=== PATIENT | male | born 1965 | race Caucasian/White ===

== ENCOUNTER 2017-11-26 15:44 | Inpatient (IN) | payer OTHER ==
[2017-11-26 16:58] VITALS: BMI 16.5
--- NOTE | 2017-11-26 19:20 | HP ---
CIWA Score - CIWA Score Nausea/Vomitin-Mild Nausea/No Vomiting Muscle Tremors: None Anxiety: 4-Mod. Anxious/Guarded Agitation: 5 Paroxysmal Sweats: No Perspiration Orientation: 3-Disoriented Date>2 days Tacttile Disturbances: 0-None Auditory Disturbances: 0-None Visual Disturbances: 0-None Headache: 0-None Present CIWA-Ar Total Score: 13 Admission ROS S - HPI Chief Complaint: C/O WITHDRAWAL SX'S. SEEKING DETOX FROM BENZO AND ALCOHOL Allergies/Adverse Reactions: Allergies Allergy/AdvReac Type Severity Reaction Status Date / Time No Known Allergies Allergy Verified 11/26/17 17:47 History of Present Illness: 52 Y.O. MALE WITH LONG HX/O ALCOHOLISM AND BENZO DEPENDENCE HERE FOR DETOX. CLIENT IS KNOWN TO THIS PROGRAM. LAST HERE 09/27/2014. REFERRED BY [facility]. DENIES HX /O SEIZURE/ AVH, SI/HI.CLIENT IS PRESENTLY ON MMTP AT [facility] LDM TODAY 70 MG CLIENT REPORTS Exam Limitations: No Limitations - Ebola screening Have you traveled outside of the country in the last 21 days: No (N) Have you had contact with anyone from an Ebola affected area: No Have you been sick,other than usual withdrawal symptoms: No Do you have a fever: No - Review of Systems Constitutional: Chills, Loss of Appetite, Night Sweats, Changes in sleep, Unintentional Wgt. Loss EENT: reports: No Symptoms Reported Respiratory: reports: No Symptoms reported Cardiac: reports: No Symptoms Reported GI: reports: Nausea, Poor Appetite : reports: No Symptoms Reported Musculoskeletal: reports: No Symptoms Reported Integumentary: reports: Sweating Neuro: reports: No Symptoms reported Endocrine: reports: No Symptoms Reported Hematology: reports: Anemia (HX/O) Psychiatric: reports: Anxious, Depressed Other Systems: Reviewed and Negative Patient History - Patient Medical History Hx Anemia: Yes (HX/O) Hx Asthma: No Hx Chronic Obstructive Pulmonary Disease (COPD): No Hx Cancer: No Hx Cardiac Disorders: No Hx Congestive Heart Failure: No Hx Hypertension: No Hx Hypercholesterolemia: No Hx Pacemaker: No HX Cerebrovascular Accident: No Hx Seizures: No Hx Dementia: No Hx Diabetes: No Hx Gastrointestinal Disorders: No Hx Liver Disease: No Hx Genitourinary Disorders: No Hx Sexually Transmitted Disorders: No Hx Renal Disease (ESRD): No Hx Thyroid Disease: No Hx Human Immunodeficiency Virus (HIV): No Hx Hepatitis C: Yes (HX/O) Hx Depression: Yes Hx Suicide Attempt: No Hx Bipolar Disorder: No Hx Schizophrenia: No Other Medical History: ANXIETY - Patient Surgical History Past Surgical History: Yes Hx Neurologic Surgery: No (head trauma at age 12) Hx Cataract Extraction: No Hx Cardiac Surgery: No Hx Lung Surgery: No Hx Breast Surgery: No Hx Breast Biopsy: No Hx Abdominal Surgery: Yes (2006 small bowel obstruction) Hx Appendectomy: No Hx Cholecystectomy: No Hx Genitourinary Surgery: No Hx Section: No Hx Orthopedic Surgery: No Other Surgical History: metal plate in rt side of head due to childhood injury; Anesthesia Reaction: No - PPD History Previous Implant?: Yes Documented Results: Negative w/o proof Implanted On Prior [facility] Admission?: Yes Date: 09/27/14 PPD to be Administered?: Yes - Smoking Cessation Smoking history: Current every day smoker Have you smoked in the past 12 months: Yes Aproximately how many cigarettes per day: 4 Cigars Per Day: 0 Hx Chewing Tobacco Use: No Initiated information on smoking cessation: Yes 'Breaking Loose' booklet given: 11/26/17 - Substance & Tx. History Hx Alcohol Use: Yes Hx Substance Use: Yes Substance Use Type: Alcohol, Tranquilizers (XANAX, KLONOPINS) Hx Substance Use Treatment: Yes ([facility]) - Substances Abused Alcohol Route: Oral Frequency: 3-6 times per week Amount used: 2-3 16 OZ CANS Age of first use: 16 Date of Last Use: 11/24/17 Alprazolam (Xanax) Route: Oral Frequency: Daily Amount used: 14 MG Age of first use: 49 Date of Last Use: 11/26/17 Family Disease History - Family Disease History Family Disease History: Diabetes: Mother, Heart Disease: Mother, Other: Brother (dsa) Admission Physical Exam BHS - Vital Signs Vital Signs: Vital Signs - 24 hr 11/26/17 16:56 Temperature 97.8 F Pulse Rate 62 Respiratory 18 Rate Blood Pressure 108/70 - Physical General Appearance: Yes: Mild Distress, Thin, Tremorous (FELT), Irritable, Sweating (MOIST SKIN) HEENTM: Yes: EOMI, Normocephalic, Normal Voice, DOLORES, Pharynx Normal, Rhinorrhea , Other (POOR DENTITION) Respiratory: Yes: Chest Non-Tender, Lungs Clear, Normal Breath Sounds, No Respiratory Distress, No Accessory Muscle Use Neck: Yes: No masses,lesions,Nodules, Supple, Trachea in good position Breast: Yes: Breast Exam Deferred Cardiology: Yes: Regular Rhythm, Regular Rate, S1, S2 Abdominal: Yes: Normal Bowel Sounds, Non Tender, Flat, Soft, Surgical Scar Genitourinary: Yes: Within Normal Limits Back: Yes: Normal Inspection Musculoskeletal: Yes: full range of Motion, Gait Steady Extremities: Yes: Normal Range of Motion, Non-Tender, Tremors (FELT) Neurological: Yes: Fully Oriented, Alert, Disoriented (TO DATE), Depressed Affect Integumentary: Yes: Cold (COOL), Moist Lymphatic: Yes: Within Normal Limits - Diagnostic (1) Alcohol dependence with uncomplicated withdrawal Current Visit: Yes Status: Acute (2) Methadone maintenance therapy patient Current Visit: Yes Status: Chronic (3) Anxiolytic withdrawal without complication Current Visit: Yes Status: Acute (4) Drug-induced mood disorder Current Visit: Yes Status: Suspected (5) Weight decreased Current Visit: Yes Status: Chronic (6) Nicotine dependence Current Visit: Yes Status: Chronic Qualifiers: Nicotine product type: cigarettes Substance use status: uncomplicated Qualified Code(s): F17.210 - Nicotine dependence, cigarettes, uncomplicated Cleared for Admission S - Detox or Rehab [facility] Level of Care: Medically Managed Detox Regimen/Protocol: Valium Claeared for Rehab Admission: No S Breath Alcohol Content Breath Alcohol Content: 0 Urine Drug Screen - Results Drug Screen Negative: No Urine Drug Screen Results: BZO-Benzodiazepines, MTD-Methadone, TCA-Tricyclic Antidepress
[2017-11-26] MEDS ORDERED: hydrOXYzine PAMOATE 50 MG CAPSULE (FP) PO PRN (19:30)
[2017-11-26] MEDS ORDERED: IBUPROFEN 400 MG TABLET (FP) PO PRN (19:30)
[2017-11-26] MEDS ORDERED: MAG HYDROX/AL HYDROX/SIMETH 30 ML UNIT-DOSE CUP PO PRN (19:30)
[2017-11-26] MEDS ORDERED: ACETAMINOPHEN 325 MG TABLET (FP) PO PRN (19:30)
[2017-11-26] MEDS ORDERED: MAGNESIUM HYDROX 2400MG/30ML ORAL SUSPENSION 30 ML CUP PO PRN (19:30)
[2017-11-26] MEDS ORDERED: diazePAM 5 MG TABLET PO PRN (19:30)
[2017-11-26] MEDS ORDERED: guaiFENesin/D-METHORPHAN HB 10 ML UNIT-DOSE CUPS PO PRN (19:30)
[2017-11-26] MEDS ORDERED: NICOTINE POLACRILEX 2 MG GUM BUC PRN (19:30)
[2017-11-26] MEDS ORDERED: MENTHOL/PHENOL 1 EACH UD MM PRN (19:30)
[2017-11-26] MEDS ORDERED: P-EPHED 60MG/TRIPROLIDI 2.5MG TABLET PO PRN (19:30)
[2017-11-26] MEDS ORDERED: MAGNESIUM CITRATE 300 ML BOTTLE PO PRN (19:30)
[2017-11-26] MEDS ORDERED: LOPERAMIDE HCL 2 MG CAPSULE PO PRN (19:30)
[2017-11-26] MEDS ORDERED: diazePAM 5 MG TABLET PO ONE (19:45)
[2017-11-26] MEDS ORDERED: THIAMINE HCL 100 MG TABLET (FP) PO SCH (22:00)
[2017-11-26] MEDS ORDERED: MELATONIN 5 MG TABLETS PO PRN (22:00)
[2017-11-26] MEDS: diazePAM 5 MG TABLET PO SCH (22:38)
[2017-11-27] MEDS: diazePAM 5 MG TABLET PO SCH (05:59)
[2017-11-27 06:28] VITALS: BP 110/71; PULSE 45; TEMP 97
[2017-11-27] MEDS ORDERED: METHADONE HCL 10 MG TABLET PO SCH (07:45)
[2017-11-27] MEDS ORDERED: METHADONE HCL 10 MG TABLET ONE (07:58)
[2017-11-27] MEDS ORDERED: METHADONE HCL 40 MG DISPERSABLE TABLET ONE (07:59)
[2017-11-27] MEDS ORDERED: METHADONE 40 MG, METHADONE 30 MG PO SCH (08:00)
[2017-11-27] MEDS ORDERED: PRENATAL VITAMINS W/ FOLIC ACID TABLET (FP) PO SCH (10:00)
[2017-11-27] MEDS ORDERED: NICOTINE 14 MG/24 HOURS TOPICAL PATCH TD SCH (10:00)
[2017-11-27 10:18] LABS: HEMOGLOBIN 12.4 GM/dL (11.7-16.9); MCH 30.1 pg (25.7-33.7); MCHC 33.6 g/dl (32.0-35.9); MEAN CELL VOLUME 89.7 fl (80-96); MEAN PLT VOLUME 8.3 fl (7.5-11.1); PLATELET COUNT 184 K/MM3 (134-434); RBC 4.13 M/mm3 (4.00-5.60); RDW 13.3 % (11.9-15.9); WHITE BLOOD COUNT 5.2 K/mm3 (4.0-10.0)
[2017-11-27 10:37] LABS: ALBUMIN 3.9 g/dl (3.4-5.0); ANION GAP 6 (8-16); BLOOD UREA NITROGEN 12 mg/dL (7-18); CHLORIDE 105 mmol/L (98-107); CO2 31 mmol/L (21-32); GLUCOSE,RANDOM 81 mg/dL (74-106); POTASSIUM 4.3 mmol/L (3.5-5.1); SODIUM 142 mmol/L (136-145)
[2017-11-27 10:40] LABS: ALK PHOS 56 U/L (45-117); BILIRUBIN,TOTAL 0.3 mg/dL (0.2-1.0); CALCIUM 9.2 mg/dL (8.5-10.1); CREATININE 0.8 mg/dL (0.7-1.3); SGOT/AST 19 U/L (15-37); SGPT/ALT 17 U/L (12-78); TOT PROT 7.2 g/dl (6.4-8.2)
[2017-11-27 10:41] LABS: URINE APPEARANCE TURBID; URINE COLOR RED; URINE GLUCOSE (UA) NEGATIVE (NEGATIVE); URINE KETONE TRACE (NEGATIVE); URINE LEUK ESTERASE NEGATIVE (NEGATIVE); URINE NITRITE NEGATIVE (NEGATIVE)
[2017-11-27 10:42] LABS: URINE PROTEIN 1+ (NEGATIVE)
[2017-11-27 10:52] LABS: EPI CELLS RARE /HPF (FEW); URINE BACTERIA MODERATE /hpf (NONE SEEN); URINE HYALINE CAST 10 /lpf; URINE MUCUS MANY
--- NOTE | 2017-11-27 13:19 | CONSULT ---
[facility] Psychiatric Consult - Data Date of interview: 11/27/17 Admission source: [facility] Identifying data: Patient not found for the psychiatric interview.Mr Abundio had left earlier.See staff's notes.
--- NOTE | 2017-11-27 19:42 | PN ---
S CIWA - CIWA Score Nausea/Vomitin-No Nausea/No Vomiting Muscle Tremors: 3 Anxiety: 5 Agitation: 4-Moderately Restless Paroxysmal Sweats: 2 Orientation: 0-Oriented Tacttile Disturbances: 1-Very Mild Itch/Numbness Auditory Disturbances: 0-None Visual Disturbances: 0-None Headache: 0-None Present CIWA-Ar Total Score: 15 BHS Progress Note (SOAP) Subjective: Tremors, Anxious, Interrupted Sleep. Objective: PATIENT A & O X 3, OBSERVED AMBULATING ON UNIT. NO ACUTE DISTRESS. 11/27/17 19:41 Vital Signs Temperature 97.0 F L 11/27/17 06:27 Pulse Rate 45 L 11/27/17 06:27 Respiratory Rate 18 11/27/17 06:27 Blood Pressure 110/71 11/27/17 06:27 O2 Sat by Pulse Oximetry (%) Laboratory Tests 11/27/17 11/27/17 11/27/17 08:00 08:00 08:00 WBC 5.2 RBC 4.13 Hgb 12.4 Hct 37.0 MCV 89.7 MCH 30.1 MCHC 33.6 RDW 13.3 Plt Count 184 MPV 8.3 Sodium 142 Potassium 4.3 Chloride 105 Carbon Dioxide 31 Anion Gap 6 L BUN 12 Creatinine 0.8 Creat Clearance w eGFR > 60 Random Glucose 81 Calcium 9.2 Total Bilirubin 0.3 AST 19 D ALT 17 D Alkaline Phosphatase 56 Total Protein 7.2 Albumin 3.9 Urine Color Urine Appearance Urine pH Ur Specific [place] Urine Protein Urine Glucose (UA) Urine Ketones Urine Blood Urine Nitrite Urine Bilirubin Urine Urobilinogen Ur Leukocyte Esterase Urine WBC (Auto) Urine RBC (Auto) Ur Epithelial Cells Urine Bacteria Hyaline Casts Urine Mucus RPR Titer Nonreactive 11/27/17 08:20 WBC RBC Hgb Hct MCV MCH MCHC RDW Plt Count MPV Sodium Potassium Chloride Carbon Dioxide Anion Gap BUN Creatinine Creat Clearance w eGFR Random Glucose Calcium Total Bilirubin AST ALT Alkaline Phosphatase Total Protein Albumin Urine Color Red Urine Appearance Turbid Urine pH 5.0 Ur Specific [place] 1.033 Urine Protein 1+ H Urine Glucose (UA) Negative Urine Ketones Trace H Urine Blood Negative Urine Nitrite Negative Urine Bilirubin 2.0 Urine Urobilinogen 2.0 Ur Leukocyte Esterase Negative Urine WBC (Auto) None Urine RBC (Auto) None Ur Epithelial Cells Rare Urine Bacteria Moderate Hyaline Casts 10 Urine Mucus Many RPR Titer LABS NOTED. Assessment: 11/27/17 19:41 WITHDRAWAL SYMPTOMS. Plan: CONTINUE DETOX.
--- NOTE | 2017-11-27 19:44 | DS ---
[facility] Detox Discharge Summary Admission Date: 11/26/17 Discharge Date: 11/27/17 - History Present History: Alcohol Dependence, Opioid Dependence, Sedative Dependence, MMTP Additional Comments: PATIENT DOES NOT WISH TO REMAIN TO COMPLETE DETOX REGIMEN. RISKS OF LEAVING DETOX UNIT AGAINST MEDICAL ADVICE AND PRIOR TO COMPLETION OF DETOX REGIMEN EXPLAINED TO PATIENT. PATIENT ADVISED TO GO IMMEDIATELY TO NEAREST ER SHOULD ANY INTOLERABLE DETOX SYMPTOMS DEVELOP AT ANY TIME. PATIENT LEFT DETOX UNIT IN STABLE MEDICAL CONDITION. Pertinent Past History: Nicotine Dependence, Weight Loss, History of Anemia, History of Depression, Anxiety, Hep C. - Physical Exam Results Vital Signs: Vital Signs Temperature 97.0 F L 11/27/17 06:27 Pulse Rate 45 L 11/27/17 06:27 Respiratory Rate 18 11/27/17 06:27 Blood Pressure 110/71 11/27/17 06:27 O2 Sat by Pulse Oximetry (%) Pertinent Admission Physical Exam Findings: WITHDRAWAL SYMPTOMS. Laboratory Tests 11/27/17 11/27/17 11/27/17 08:00 08:00 08:00 WBC 5.2 RBC 4.13 Hgb 12.4 Hct 37.0 MCV 89.7 MCH 30.1 MCHC 33.6 RDW 13.3 Plt Count 184 MPV 8.3 Sodium 142 Potassium 4.3 Chloride 105 Carbon Dioxide 31 Anion Gap 6 L BUN 12 Creatinine 0.8 Creat Clearance w eGFR > 60 Random Glucose 81 Calcium 9.2 Total Bilirubin 0.3 AST 19 D ALT 17 D Alkaline Phosphatase 56 Total Protein 7.2 Albumin 3.9 Urine Color Urine Appearance Urine pH Ur Specific [place] Urine Protein Urine Glucose (UA) Urine Ketones Urine Blood Urine Nitrite Urine Bilirubin Urine Urobilinogen Ur Leukocyte Esterase Urine WBC (Auto) Urine RBC (Auto) Ur Epithelial Cells Urine Bacteria Hyaline Casts Urine Mucus RPR Titer Nonreactive 11/27/17 08:20 WBC RBC Hgb Hct MCV MCH MCHC RDW Plt Count MPV Sodium Potassium Chloride Carbon Dioxide Anion Gap BUN Creatinine Creat Clearance w eGFR Random Glucose Calcium Total Bilirubin AST ALT Alkaline Phosphatase Total Protein Albumin Urine Color Red Urine Appearance Turbid Urine pH 5.0 Ur Specific [place] 1.033 Urine Protein 1+ H Urine Glucose (UA) Negative Urine Ketones Trace H Urine Blood Negative Urine Nitrite Negative Urine Bilirubin 2.0 Urine Urobilinogen 2.0 Ur Leukocyte Esterase Negative Urine WBC (Auto) None Urine RBC (Auto) None Ur Epithelial Cells Rare Urine Bacteria Moderate Hyaline Casts 10 Urine Mucus Many RPR Titer LABS NOTED. - Treatment Hospital Course: Detoxed Safely - Medication Discharge Medications: Ambulatory Orders NK [No Known Home Medication] 09/25/14 - Diagnosis (1) Alcohol dependence with uncomplicated withdrawal Status: Acute (2) Anxiolytic withdrawal without complication Status: Acute (3) Methadone maintenance therapy patient Status: Chronic (4) Nicotine dependence Status: Chronic Qualifiers: Nicotine product type: cigarettes Substance use status: uncomplicated Qualified Code(s): F17.210 - Nicotine dependence, cigarettes, uncomplicated (5) Weight decreased Status: Chronic (6) Drug-induced mood disorder Status: Suspected - AMA Did Patient Leave Against Medical Advice: Yes (PATIENT DID NOT WISH TO REMAIN TO COMPLETE DETOX REGIMEN.)
[2017-11-28] MEDS ORDERED: diazePAM 5 MG TABLET PO SCH (10:00)
--- NOTE | 2017-11-29 11:09 | EKG ---
Test Reason : Blood Pressure : / mmHG Vent. Rate : 048 BPM Atrial Rate : 048 BPM P-R Int : 176 ms QRS Dur : 086 ms QT Int : 452 ms P-R-T Axes : 081 072 067 degrees QTc Int : 403 ms SINUS BRADYCARDIA OTHERWISE NORMAL ECG NO PREVIOUS ECGS AVAILABLE Confirmed by EASTON CAMPOS MD ([id number]) on 11/29/2017 11:09:22 AM Referred By: Confirmed By:EASTON CAMPOS MD
[2017-11-30] MEDS ORDERED: diazePAM 5 MG TABLET PO SCH (10:00)
== END 2017-11-27 11:05 | disposition left against medical advice (07) | DRG 770 ==
LOC: YASAS 15:44 → Y3N 18:15
PROVIDERS: ADMIT Surgery; ATTEND Surgery
PROC: HZ2ZZZZ Detoxification Services for Substance Abuse Treatment (ICD-10-PCS; principal; 2017-11-26)
DX: F10.230 Alcohol dependence with withdrawal, uncomplicated (principal); F13.20 Sedative, hypnotic or anxiolytic dependence, uncomplicated; F11.20 Opioid dependence, uncomplicated; F17.210 Nicotine dependence, cigarettes, uncomplicated; F19.24 Other psychoactive substance dependence with psychoactive substance-induced mood disorder; F41.8 Other specified anxiety disorders; R63.4 Abnormal weight loss; Z68.1 Body mass index [BMI] 19.9 or less, adult; Z86.19 Personal history of other infectious and parasitic diseases; Z86.2 Personal history of diseases of the blood and blood-forming organs and certain disorders involving the immune mechanism
CPT/HCPCS: 36415; 80053; 81003; 81015; 85027; 86593; 93005; 93010

== ENCOUNTER 2018-07-05 10:30 | Inpatient (IN) | payer OTHER ==
[2018-07-05 12:33] VITALS: BMI 17.1
--- NOTE | 2018-07-05 13:26 | HP ---
CIWA Score Nausea/Vomitin Muscle Tremors: 2 Anxiety: 2 Agitation: 2 Paroxysmal Sweats: 1-Minimal Palms Moist Orientation: 0-Oriented Tacttile Disturbances: 1-Very Mild Itch/Numbness Auditory Disturbances: 1-Very Mild Visual Disturbances: 0-None Headache: 2-Mild CIWA-Ar Total Score: 13 - Admission Criteria [facility] Guidelines: Admission for Medically Managed Detox: Requires at least one of the followin. CIWA greater than 12 2. Seizures within the past 24 hours 3. Delirium tremens within the past 24 hours 4. Hallucinations within the past 24 hours 5. Acute intervention needed for co occurring medical disorder 6. Acute intervention needed for co occurring psychiatric disorder 7. Severe withdrawal that cannot be handled at a lower level of care (continued vomiting, continued diarrhea, abnormal vital signs) requiring intravenous medication and/or fluids 8. Patient presents the following: CIWA greater than 12 Admission Criteria Met: Admission criteria met Admission ROS S - [facility] Chief Complaint: i need help to stop using xanax,klonopin,alcohol,heroin abused Allergies/Adverse Reactions: Allergies Allergy/AdvReac Type Severity Reaction Status Date / Time No Known Allergies Allergy Verified 07/05/18 12:48 History of Present Illness: this 52 years old male with xanax,klonopin dependence,alcohol ,heroin abused, mmtp 80 mgs/day, last medicated today multiple admissions in detox but keep relapsing last detox 11/26/17 to 11/27/17 weight loss hepatitis c follow up by medical provider no treatment needed longest period of sobriety for 2 years [facility] go go back to methadone program - Ebola screening Have you traveled outside of the country in the last 21 days: No Have you had contact with anyone from an Ebola affected area: No Have you been sick,other than usual withdrawal symptoms: No Do you have a fever: No - Review of Systems Constitutional: Loss of Appetite, Malaise, Night Sweats, Changes in sleep, Weakness, Unintentional Wgt. Loss EENT: reports: Nose Congestion Respiratory: reports: No Symptoms reported Cardiac: reports: No Symptoms Reported GI: reports: Nausea, Poor Appetite, Vomiting, Abdominal cramping : reports: No Symptoms Reported Musculoskeletal: reports: Back Pain, Muscle Pain, Muscle Weakness Integumentary: reports: Dryness Neuro: reports: Headache, Tremors Endocrine: reports: No Symptoms Reported Hematology: reports: No Symptoms Reported Psychiatric: reports: No Sypmtoms Reported, Judgement Intact, Mood/Affect Appropiate, Orientated x3, other Patient History - Patient Medical History Hx Anemia: Yes (HX/O,no medication) Hx Asthma: No Hx Chronic Obstructive Pulmonary Disease (COPD): No Hx Cancer: No Hx Cardiac Disorders: No Hx Congestive Heart Failure: No Hx Hypertension: No Hx Hypercholesterolemia: No Hx Pacemaker: No HX Cerebrovascular Accident: No Hx Seizures: No Hx Dementia: No Hx Diabetes: No Hx Gastrointestinal Disorders: No Hx Liver Disease: No Hx Genitourinary Disorders: No Hx Sexually Transmitted Disorders: No Hx Renal Disease (ESRD): No Hx Thyroid Disease: No Hx Human Immunodeficiency Virus (HIV): No Hx Hepatitis C: Yes (HX/O no treatment needed follow up by medical provider) Hx Depression: Yes Hx Suicide Attempt: No Hx Bipolar Disorder: No Hx Schizophrenia: Yes (schizoaffective disorder) Other Medical History: no suicidal,no homicidal, - Patient Surgical History Past Surgical History: Yes Hx Neurologic Surgery: No (head trauma at age 12) Hx Cataract Extraction: No Hx Cardiac Surgery: No Hx Lung Surgery: No Hx Breast Surgery: No Hx Breast Biopsy: No Hx Abdominal Surgery: Yes (2006 small bowel obstruction) Hx Appendectomy: No Hx Cholecystectomy: No Hx Genitourinary Surgery: No Hx Section: No Hx Orthopedic Surgery: No Other Surgical History: metal plate in rt side of head due to childhood injury; Anesthesia Reaction: No - PPD History Previous Implant?: Yes Documented Results: Negative w/proof Implanted On Prior R Admission?: Yes Results: no reading PPD to be Administered?: Yes - Smoking Cessation Smoking history: Current every day smoker Have you smoked in the past 12 months: Yes Aproximately how many cigarettes per day: 3 Cigars Per Day: 0 Hx Chewing Tobacco Use: No Initiated information on smoking cessation: Yes 'Breaking Loose' booklet given: 07/05/18 - Substance & Tx. History Hx Alcohol Use: Yes Hx Substance Use: Yes Substance Use Type: Alcohol, Heroin, Tranquilizers - Substances Abused Heroin Route: Inhalation Frequency: 1-3 times last 30 days Amount used: 1 bag Age of first use: 23 Date of Last Use: 07/05/18 Xanax/Klonopin Route: Oral Frequency: Daily Amount used: 8-10 mg. Age of first use: 50 Date of Last Use: 07/05/18 Alcohol- Route: Oral Frequency: Daily Amount used: 2-3 (12 oz.) Age of first use: 13 Date of Last Use: 07/05/18 Family Disease History - Family Disease History Family Disease History: Diabetes: Mother, Heart Disease: Mother, Other: Brother (dsa) Admission Physical Exam [facility] - Vital Signs Vital Signs: Vital Signs - 24 hr 07/05/18 12:30 Temperature 96.4 F L Pulse Rate 73 Respiratory 18 Rate Blood Pressure 111/61 - Physical General Appearance: Yes: Moderate Distress, Tremorous, Irritable, Sweating, Anxious HEENTM: Yes: Normal ENT Inspection, Normocephalic, DOLORES, Pharynx Normal, Other ( scar in right parietal area) Respiratory: Yes: Lungs Clear, Normal Breath Sounds, No Respiratory Distress Neck: Yes: Within Normal Limits, Supple, Trachea in good position Breast: Yes: Within Normal Limits Cardiology: Yes: Within Normal Limits, Regular Rhythm, Regular Rate, S1, S2 Abdominal: Yes: Surgical Scar Genitourinary: Yes: Within Normal Limits Back: Yes: Muscle Spasm Musculoskeletal: Yes: full range of Motion, Back pain, Muscle Pain Extremities: Yes: Normal Range of Motion, Tremors 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, Fully Oriented, Alert, Motor Strength 5/5 Integumentary: Yes: Dry Lymphatic: Yes: Within Normal Limits - Diagnostic (1) Alcohol dependence with uncomplicated withdrawal Current Visit: No Status: Acute (2) Anxiolytic withdrawal without complication Current Visit: No Status: Acute (3) Methadone maintenance therapy patient Current Visit: No Status: Chronic (4) Nicotine dependence Current Visit: No Status: Chronic Qualifiers: Nicotine product type: cigarettes Substance use status: uncomplicated Qualified Code(s): F17.210 - Nicotine dependence, cigarettes, uncomplicated (5) Weight decreased Current Visit: No Status: Chronic (6) mmtp Current Visit: No Status: Chronic (7) Schizoaffective disorder Current Visit: Yes Status: Acute (8) Dehydration Current Visit: Yes Status: Acute Cleared for Admission [facility] - Detox or Rehab [facility] Level of Care: Medically Managed Detox Regimen/Protocol: Librium S Breath Alcohol Content Breath Alcohol Content: 0 Urine Drug Screen - Results Drug Screen Negative: No Urine Drug Screen Results: OPI-Opiates, BZO-Benzodiazepines, MTD-Methadone Inpatient Rehab Admission - Rehab Decision to Admit Inpatient rehab admission?: No
[2018-07-05] MEDS ORDERED: LOPERAMIDE HCL 2 MG CAPSULE PO PRN (13:50)
[2018-07-05] MEDS ORDERED: guaiFENesin/D-METHORPHAN HB 10 ML UNIT-DOSE CUPS PO PRN (13:50)
[2018-07-05] MEDS ORDERED: hydrOXYzine PAMOATE 50 MG CAPSULE (FP) PO PRN (13:50)
[2018-07-05] MEDS ORDERED: MAGNESIUM HYDROX 2400MG/30ML ORAL SUSPENSION 30 ML CUP PO PRN (13:50)
[2018-07-05] MEDS ORDERED: MAG HYDROX/AL HYDROX/SIMETH 30 ML UNIT-DOSE CUP PO PRN (13:50)
[2018-07-05] MEDS ORDERED: ACETAMINOPHEN 325 MG TABLET (FP) PO PRN (13:50)
[2018-07-05] MEDS ORDERED: MAGNESIUM CITRATE 300 ML BOTTLE PO PRN (13:50)
[2018-07-05] MEDS ORDERED: IBUPROFEN 400 MG TABLET (FP) PO PRN (13:50)
[2018-07-05] MEDS ORDERED: P-EPHED 60MG/TRIPROLIDI 2.5MG TABLET PO PRN (13:50)
[2018-07-05] MEDS ORDERED: MENTHOL/PHENOL 1 EACH UD MM PRN (13:50)
[2018-07-05] MEDS ORDERED: diazePAM 5 MG TABLET PO ONE (13:57)
[2018-07-05] MEDS: THIAMINE HCL 100 MG TABLET (FP) PO SCH (22:51)
[2018-07-05] MEDS: diazePAM 5 MG TABLET PO SCH (22:51)
[2018-07-06] MEDS: diazePAM 5 MG TABLET PO SCH ×3 (05:30→22:00)
[2018-07-06] MEDS: METHADONE HCL 40 MG DISPERSABLE TABLET PO SCH (05:30)
[2018-07-06 10:18] LABS: HEMATOCRIT 36.3 % (35.4-49); HEMOGLOBIN 12.2 GM/dL (11.7-16.9); MCH 29.8 pg (25.7-33.7); MCHC 33.5 g/dl (32.0-35.9); MEAN PLT VOLUME 9.2 fl (7.5-11.1); PLATELET COUNT 192 K/MM3 (134-434); RBC 4.08 M/mm3 (4.00-5.60); RDW 13.6 % (11.9-15.9); WHITE BLOOD COUNT 5.4 K/mm3 (4.0-10.0)
[2018-07-06] MEDS: PRENATAL VITAMINS W/ FOLIC ACID TABLET (FP) PO SCH (10:47)
[2018-07-06 11:25] LABS: ALK PHOS 60 U/L (45-117); ANION GAP 6 MMOL/L (8-16); BILIRUBIN,TOTAL 0.3 mg/dL (0.2-1); BLOOD UREA NITROGEN 18 mg/dL (7-18); CALCIUM 8.9 mg/dL (8.5-10.1); CHLORIDE 103 mmol/L (98-107); CO2 29 mmol/L (21-32); CREATININE 0.9 mg/dL (0.55-1.3); GLUCOSE,RANDOM 112 mg/dL (74-106); POTASSIUM 4.3 mmol/L (3.5-5.1); SGOT/AST 18 U/L (15-37); SGPT/ALT 18 U/L (13-61); SODIUM 139 mmol/L (136-145); TOT PROT 7.2 g/dl (6.4-8.2)
--- NOTE | 2018-07-06 11:41 | PN ---
[facility] CIWA - CIWA Score Nausea/Vomitin-No Nausea/No Vomiting Muscle Tremors: 2 Anxiety: 1-Mildly Anxious Agitation: 2 Paroxysmal Sweats: 1-Minimal Palms Moist Orientation: 2-Disoriented Date<2 days Tacttile Disturbances: 0-None Auditory Disturbances: 0-None Visual Disturbances: 0-None Headache: 1-Very Mild CIWA-Ar Total Score: 9 S Progress Note (SOAP) Subjective: anxiety tremor sweating restlessness overly worry Objective: 07/06/18 11:40 Vital Signs Temperature 97.7 F 07/06/18 10:47 Pulse Rate 72 07/06/18 10:47 Respiratory Rate 18 07/06/18 10:47 Blood Pressure 103/61 07/06/18 10:47 O2 Sat by Pulse Oximetry (%) Laboratory Last Values WBC 5.4 K/mm3 (4.0-10.0) 07/06/18 06:00 RBC 4.08 M/mm3 (4.00-5.60) 07/06/18 06:00 Hgb 12.2 GM/dL (11.7-16.9) 07/06/18 06:00 Hct 36.3 % (35.4-49) 07/06/18 06:00 MCV 89.0 fl (80-96) 07/06/18 06:00 MCH 29.8 pg (25.7-33.7) 07/06/18 06:00 MCHC 33.5 g/dl (32.0-35.9) 07/06/18 06:00 RDW 13.6 % (11.9-15.9) 07/06/18 06:00 Plt Count 192 K/MM3 (134-434) 07/06/18 06:00 MPV 9.2 fl (7.5-11.1) D 07/06/18 06:00 Sodium 139 mmol/L (136-145) 07/06/18 06:00 Potassium 4.3 mmol/L (3.5-5.1) 07/06/18 06:00 Chloride 103 mmol/L (98-107) 07/06/18 06:00 Carbon Dioxide 29 mmol/L (21-32) 07/06/18 06:00 Anion Gap 6 MMOL/L (8-16) L 07/06/18 06:00 BUN 18 mg/dL (7-18) 07/06/18 06:00 Creatinine 0.9 mg/dL (0.55-1.3) 07/06/18 06:00 Creat Clearance w eGFR > 60 (>60) 07/06/18 06:00 Random Glucose 112 mg/dL (74-106) H 07/06/18 06:00 Calcium 8.9 mg/dL (8.5-10.1) 07/06/18 06:00 Total Bilirubin 0.3 mg/dL (0.2-1) 07/06/18 06:00 AST 18 U/L (15-37) 07/06/18 06:00 ALT 18 U/L (13-61) 07/06/18 06:00 Alkaline Phosphatase 60 U/L (45-117) 07/06/18 06:00 Total Protein 7.2 g/dl (6.4-8.2) 07/06/18 06:00 Albumin 4.0 g/dl (3.4-5.0) 07/06/18 06:00 lab noted Assessment: 07/06/18 11:40 withdrawal sx Plan: continue detox
--- NOTE | 2018-07-06 13:27 | CONSULT ---
[facility] Psychiatric Consult - Data Date of interview: 07/06/18 Admission source: [facility] Identifying data: [employer] medical students approached this patient at bedside for a psychiatric evaluation. Mr Del Castillo declines to be interviewed.
[2018-07-06] MEDS: MELATONIN 5 MG TABLETS PO PRN (22:00)
[2018-07-06] MEDS: THIAMINE HCL 100 MG TABLET (FP) PO SCH (22:00)
[2018-07-07] MEDS: diazePAM 5 MG TABLET PO PRN ×2 (06:20→18:26)
[2018-07-07] MEDS: METHADONE HCL 40 MG DISPERSABLE TABLET PO SCH (06:20)
[2018-07-07] MEDS: PRENATAL VITAMINS W/ FOLIC ACID TABLET (FP) PO SCH (10:29)
[2018-07-07] MEDS: diazePAM 5 MG TABLET PO SCH ×2 (10:29→22:44)
--- NOTE | 2018-07-07 16:31 | PN ---
S CIWA - CIWA Score Nausea/Vomitin-No Nausea/No Vomiting Muscle Tremors: 1-None Visible, but [place] Anxiety: 1-Mildly Anxious Agitation: 1-Slight > Activity Paroxysmal Sweats: 1-Minimal Palms Moist Orientation: 0-Oriented Tacttile Disturbances: 0-None Auditory Disturbances: 0-None Visual Disturbances: 0-None Headache: 1-Very Mild CIWA-Ar Total Score: 5 BHS Progress Note (SOAP) Subjective: feeling better less tremor less anxiety sleep better at night Objective: 07/07/18 16:30 Vital Signs Temperature 97.9 F 07/07/18 13:24 Pulse Rate 78 07/07/18 13:24 Respiratory Rate 18 07/07/18 13:24 Blood Pressure 106/70 07/07/18 13:24 O2 Sat by Pulse Oximetry (%) Laboratory Last Values WBC 5.4 K/mm3 (4.0-10.0) 07/06/18 06:00 RBC 4.08 M/mm3 (4.00-5.60) 07/06/18 06:00 Hgb 12.2 GM/dL (11.7-16.9) 07/06/18 06:00 Hct 36.3 % (35.4-49) 07/06/18 06:00 MCV 89.0 fl (80-96) 07/06/18 06:00 MCH 29.8 pg (25.7-33.7) 07/06/18 06:00 MCHC 33.5 g/dl (32.0-35.9) 07/06/18 06:00 RDW 13.6 % (11.9-15.9) 07/06/18 06:00 Plt Count 192 K/MM3 (134-434) 07/06/18 06:00 MPV 9.2 fl (7.5-11.1) D 07/06/18 06:00 Sodium 139 mmol/L (136-145) 07/06/18 06:00 Potassium 4.3 mmol/L (3.5-5.1) 07/06/18 06:00 Chloride 103 mmol/L (98-107) 07/06/18 06:00 Carbon Dioxide 29 mmol/L (21-32) 07/06/18 06:00 Anion Gap 6 MMOL/L (8-16) L 07/06/18 06:00 BUN 18 mg/dL (7-18) 07/06/18 06:00 Creatinine 0.9 mg/dL (0.55-1.3) 07/06/18 06:00 Creat Clearance w eGFR > 60 (>60) 07/06/18 06:00 Random Glucose 112 mg/dL (74-106) H 07/06/18 06:00 Calcium 8.9 mg/dL (8.5-10.1) 07/06/18 06:00 Total Bilirubin 0.3 mg/dL (0.2-1) 07/06/18 06:00 AST 18 U/L (15-37) 07/06/18 06:00 ALT 18 U/L (13-61) 07/06/18 06:00 Alkaline Phosphatase 60 U/L (45-117) 07/06/18 06:00 Total Protein 7.2 g/dl (6.4-8.2) 07/06/18 06:00 Albumin 4.0 g/dl (3.4-5.0) 07/06/18 06:00 RPR Titer Nonreactive (NONREACTIVE) 07/06/18 06:00 HIV 1&2 Antibody Screen Negative 07/05/18 13:30 HIV P24 Antigen Negative 07/05/18 13:30 lab noted Assessment: 07/07/18 16:31 mild withdrawal sx Plan: continue detox
[2018-07-07] MEDS: THIAMINE HCL 100 MG TABLET (FP) PO SCH (22:44)
[2018-07-07] MEDS: MELATONIN 5 MG TABLETS PO PRN (22:44)
[2018-07-08] MEDS: METHADONE HCL 40 MG DISPERSABLE TABLET PO SCH (06:05)
[2018-07-08 06:39] VITALS: BP 102/63; PULSE 50; TEMP 97.2
[2018-07-09] MEDS ORDERED: diazePAM 5 MG TABLET PO SCH (10:00)
--- NOTE | 2018-07-10 22:24 | DS ---
[facility] Detox Discharge Summary Admission Date: 07/05/18 Discharge Date: 07/08/18 - History Present History: Alcohol Dependence, Opioid Dependence, Sedative Dependence, MMTP Additional Comments: PATIENT RETURNING TO PREVIOUS [facility] ([place], [place]) FOR AFTERCARE. PATIENT ALSO ADVISED TO CONSIDER LOCAL 12-STEP / NA / AA OUTPATIENT SUPPORT GROUPS FOR ADDITIONAL SOURCES OF AFTERCARE. PATIENT VERBALIZED UNDERSTANDING OF RECOMMENDATION. PATIENT WAS DISCHARGED FROM DETOX UNIT IN STABLE MEDICAL CONDITION. Pertinent Past History: History of Anemia, History of Schizoaffective Disorder, Hep C, History of Depression, M.M.T.P., Nicotine Dependence, Weight Decreased, Deydration. - Physical Exam Results Vital Signs: Vital Signs Temperature 97.2 F L 07/08/18 06:38 Pulse Rate 50 L 07/08/18 06:38 Respiratory Rate 18 07/08/18 06:38 Blood Pressure 102/63 07/08/18 06:38 O2 Sat by Pulse Oximetry (%) Pertinent Admission Physical Exam Findings: WITHDRAWAL SYMPTOMS. Laboratory Tests 07/05/18 07/06/18 07/06/18 13:30 06:00 06:00 WBC 5.4 RBC 4.08 Hgb 12.2 Hct 36.3 MCV 89.0 MCH 29.8 MCHC 33.5 RDW 13.6 Plt Count 192 MPV 9.2 D Sodium 139 Potassium 4.3 Chloride 103 Carbon Dioxide 29 Anion Gap 6 L BUN 18 Creatinine 0.9 Creat Clearance w eGFR > 60 Random Glucose 112 H Calcium 8.9 Total Bilirubin 0.3 AST 18 ALT 18 Alkaline Phosphatase 60 Total Protein 7.2 Albumin 4.0 RPR Titer HIV 1&2 Antibody Screen Negative HIV P24 Antigen Negative 07/06/18 06:00 WBC RBC Hgb Hct MCV MCH MCHC RDW Plt Count MPV Sodium Potassium Chloride Carbon Dioxide Anion Gap BUN Creatinine Creat Clearance w eGFR Random Glucose Calcium Total Bilirubin AST ALT Alkaline Phosphatase Total Protein Albumin RPR Titer Nonreactive HIV 1&2 Antibody Screen HIV P24 Antigen LABS NOTED. - Treatment Hospital Course: Detox Protocol Followed, Detoxed Safely, Responded well, Discharged Condition Good Patient has Accepted a Rehab Referral to: PT. RETURNING TO [facility] ([place]) FOR AFTERCARE. - Medication Discharge Medications: Ambulatory Orders NK [No Known Home Medication] 09/25/14 - Diagnosis (1) Alcohol dependence with uncomplicated withdrawal Status: Acute (2) Anxiolytic withdrawal without complication Status: Acute (3) Dehydration Status: Acute (4) Schizoaffective disorder Status: Acute Qualifiers: Schizoaffective disorder type: unspecified Qualified Code(s): F25.9 - Schizoaffective disorder, unspecified (5) Methadone maintenance therapy patient Status: Chronic (6) Nicotine dependence Status: Chronic Qualifiers: Nicotine product type: cigarettes Substance use status: uncomplicated Qualified Code(s): F17.210 - Nicotine dependence, cigarettes, uncomplicated (7) Weight decreased Status: Chronic (8) mmtp Status: Chronic - AMA Did Patient Leave Against Medical Advice: No
== END 2018-07-08 08:53 | disposition home or self-care (01) | DRG 773 ==
LOC: YASAS 10:30 → Y3N 15:03
PROVIDERS: ADMIT Surgery; ATTEND Surgery
PROC: HZ2ZZZZ Detoxification Services for Substance Abuse Treatment (ICD-10-PCS; principal; 2018-07-05)
DX: F10.230 Alcohol dependence with withdrawal, uncomplicated (principal); F13.230 Sedative, hypnotic or anxiolytic dependence with withdrawal, uncomplicated; F11.20 Opioid dependence, uncomplicated; F17.210 Nicotine dependence, cigarettes, uncomplicated; E86.0 Dehydration; R63.4 Abnormal weight loss; Z68.1 Body mass index [BMI] 19.9 or less, adult; Z86.2 Personal history of diseases of the blood and blood-forming organs and certain disorders involving the immune mechanism; Z86.19 Personal history of other infectious and parasitic diseases
CPT/HCPCS: 36415; 80053; 85027; 86593; 87389